=== PATIENT | male | born 1945 | race Caucasian/White ===

== ENCOUNTER 2019-08-17 11:21 | Emergency (ER) | payer OTHER ==
[2019-08-17] MEDS ORDERED: traMADol HCl 50 MG TAB ONE (12:14)
[2019-08-17] MEDS ORDERED: Lidocaine 1% (PF) 30 ML VIAL ONE ×2 (12:55→12:59)
--- NOTE | 2019-08-17 13:01 | CT ---
CT CERVICAL SPINE WITHOUT CONTRAST: INDICATION: Fall with injury. FINDINGS: Cervical vertebral maintain normal height and alignment. Disk spaces are preserved. There are mild degenerative changes. There is no evidence of acute fracture. IMPRESSION: No acute fracture. POS: [facility]
--- NOTE | 2019-08-17 13:05 | RAD ---
LEFT WRIST 3 VIEWS: HISTORY: Fall with injury. FINDINGS/IMPRESSION: Splint material obscures detail. There is a prominently transverse but mildly comminuted impacted fr acture of the distal radius. Mild dorsal angulation of the distal fragment consistent with a [place]-t ype fracture. Probable associated fracture of the ulnar styloid without displacement. POS: [facility]
--- NOTE | 2019-08-17 13:26 | CT ---
CT BRAIN NONCONTRAST: DATE: 08/17/2019 HISTORY: 73-year-old male status post acute head trauma from fall. FINDINGS: There is no evidence of acute intra-axial or extra-axial hemorrhage. There is no midline shift or any other mass effect. There is no extra-axial fluid collection. There is no evidence of obstructive hydrocephalus. Calvarium is intact. IMPRESSION: No acute intracranial findings.
[2019-08-17] MEDS ORDERED: Bacitracin 1 PK ONE (13:36)
[2019-08-17] MEDS ORDERED: Adacel (T-DAP) 0.5 ML SYRINGE ONE (13:43)
[2019-08-17 13:47] LABS: #Basophils 0.1 thou/uL (0.0-0.2); #Eosinphils 0.5 thou/uL (0.0-0.7); #Lymphocytes 1.2 thou/uL (1.20-3.40); #Monocytes 0.4 thou/uL (0.11-0.59); #Neutrophils 4.3 thou/uL (1.40-6.50); %Basophils 1.1 % (0.0-1.0); %Eosinophils 7.7 % (0.0-10.0); %Lymphocytes 18.3 % (21.0-51.0); %Monocytes 5.8 % (0.0-10.0); %Neutrophils 67.2 % (42.0-75.0); Hemoglobin 12.9 g/dL (14.0-18.0); Mean Corpuscular HGB CONC 34.5 g/dL (32.0-36.0); Mean Corpuscular Hemoglobin 35.7 pg (27.0-31.0); Mean Platelet Volume 7.2 fL (7.4-10.4); Platelet Count 204 thou/uL (130-400); RBC Distribution Width 13.1 % (11.5-14.5); White Blood Cell (WBC) Count 6.4 thou/uL (4.8-10.8)
[2019-08-17 14:08] LABS: ALT (SGPT) 19 U/L (8-55); AST (SGOT) 20 U/L (5-34); Albumin 4.3 g/dL (3.4-4.8); Alkaline Phosphatase 98 U/L (40-110); Anion Gap 13 mmol/L (10-20); BUN (Urea Nitrogen) 12 mg/dL (8.4-25.7); Bilirubin, Total 0.2 mg/dL (0.2-1.2); Calc. Creatinine Clearance 0 mL/min (70-130); Calcium 8.7 mg/dL (7.8-10.44); Carbon Dioxide 23 mmol/L (23-31); Chloride 105 mmol/L (98-107); Estimated GFR-MDRD Greater than 90; Globulin 2.2 g/dL (2.4-3.5); Glucose 99 mg/dL (83-110); Potassium 4.8 mmol/L (3.5-5.1); Protein, Total 6.5 g/dL (5.8-8.1); Sodium 136 mmol/L (136-145)
[2019-08-17] MEDS ORDERED: Fentanyl 100 MCG/2 ML VIAL ONE (14:40)
== END 2019-08-17 16:13 | disposition home or self-care (01) ==
LOC: ERS 11:21
DX: S52.532A Colles' fracture of left radius, initial encounter for closed fracture (principal); S52.615A Nondisplaced fracture of left ulna styloid process, initial encounter for closed fracture; I25.2 Old myocardial infarction; I10 Essential (primary) hypertension; E78.00 Pure hypercholesterolemia, unspecified; Z79.82 Long term (current) use of aspirin; Z79.899 Other long term (current) drug therapy; Z23 Encounter for immunization; W01.0XXA Fall on same level from slipping, tripping and stumbling without subsequent striking against object, initial encounter
CPT/HCPCS: 25605; 36415; 70450; 72125; 80053; 85025; 90471; 90715; 93005; 94760; 96374; J2001; J3010

== ENCOUNTER 2019-08-21 00:52 | Emergency (ER) | payer OTHER ==
[2019-08-21] MEDS ORDERED: Ketorolac Tromethamine 30 MG/ML VIAL ONE (02:29)
== END 2019-08-21 02:43 | disposition home or self-care (01) ==
LOC: ERS 00:52
DX: M79.89 Other specified soft tissue disorders (principal); F41.9 Anxiety disorder, unspecified; F32.9 Major depressive disorder, single episode, unspecified; F43.10 Post-traumatic stress disorder, unspecified; I10 Essential (primary) hypertension; E78.00 Pure hypercholesterolemia, unspecified; I25.2 Old myocardial infarction; Z79.899 Other long term (current) drug therapy; Z79.82 Long term (current) use of aspirin
CPT/HCPCS: 25600; 96372; J1885

== ENCOUNTER 2019-08-25 | Emergency (ER) | payer OTHER | END 2019-08-25 02:11 | disposition home or self-care (01) | LOC: ERS | DX: S52.502D Unspecified fracture of the lower end of left radius, subsequent encounter for closed fracture with routine healing (principal); S52.612D Displaced fracture of left ulna styloid process, subsequent encounter for closed fracture with routine healing; M25.432 Effusion, left wrist; I25.2 Old myocardial infarction; I10 Essential (primary) hypertension; E78.00 Pure hypercholesterolemia, unspecified; F41.9 Anxiety disorder, unspecified; F32.9 Major depressive disorder, single episode, unspecified; F43.10 Post-traumatic stress disorder, unspecified; Z79.899 Other long term (current) drug therapy; Z79.82 Long term (current) use of aspirin; X58.XXXD Exposure to other specified factors, subsequent encounter | CPT/HCPCS: 99281 ==